=== PATIENT | male | born 1995 | race African-American/Black ===

== ENCOUNTER 2018-09-21 15:07 | Emergency (ER) | payer MEDICAID ==
--- NOTE | 2018-09-21 18:39 | ED Physician Chart ---
ED Chief Complaint/HPI - Patient Information Date Seen:: 09/21/18 Time Seen:: 15:25 Chief Complaint:: Scrotal Pain History of Present Illness:: onset x one month of intermittent scrotal pain and swelling, testicular pain, and scant, occasional urethral discharge; pt denies trauma, LOC, ALOC, AMS, H/As , S/T, neck pain, cough, C/P, SOB, Abd. Pain, A/N/V/D/C, fever, chills, or urinary s/s; pt is eating and is urinating well; pt last urinated 1/2 hour [employer]; pt's last tetanus shot: < 5 years; UTD Allergies:: Allergies Allergy/AdvReac Type Severity Reaction Status Date / Time No Known Allergies Allergy Verified 09/21/18 15:25 Vitals:: Vital Signs - 8 hr 09/21/18 09/21/18 15:25 16:26 Temp 99.5 F 97.3 F HR 99 99 RR 18 18 BP 102/68 102/68 O2 Sat % 99 Historian:: Patient Review:: Nurse's Note Reviewed ED Review of Systems - Review of Systems General/Constitutional: No fever, No chills, No weight loss, No weakness, No diaphoresis, No edema, No loss of appetite Skin: No skin lesions, No rash, No bruising Head: No headache, No light-headedness Eyes: No loss of vision, No pain, No diplopia ENT: No earache, No nasal drainage, No sore throat, No tinnitus Neck: No neck pain, No swelling, No thyromegaly, No stiffness, No mass noted Cardio Vascular: No chest pain, No palpitations, No PND, No orthopnea, No edema Pulmonary: No SOB, No cough, No sputum, No wheezing GI: No nausea, No vomiting, No diarrhea, No pain, No melena, No hematochezia, No constipation, No hematemesis G/U: No dysuria, No frequency, No hematuria, No nacturia Musculoskeletal: No bone or joint pain, No back pain, No muscle pain Endocrine: No polyuria, No polydipsia Psychiatric: No prior psych history, No depression, No anxiety, No suicidal ideation, No homicidal ideation, No auditory hallucination, No visual hallucination Hematopoietic: No bruising, No lymphadenopathy Allergic/Immuno: No urticaria, No angioedema Neurological: No syncope, No focal symptoms, No weakness, No paresthesia, No headache, No seizure, No dizziness, No confusion, No vertigo ED Past Medical History - Past Medical History Obtainable: Yes Past Medical History: No significant medical hx Family History: None Social History: Non Smoker, No Alcohol, No Drug Use, Single Surgical History: None Psychiatricy History: None Medication: Reviewed Family Medical History - Family Member Mother History Unknown: Yes ED Physical Exam - Physical Examination General/Constitutional: Awake, Well-developed, well-nourished, Alert, No distress, GCS 15, Non-toxic appearing, Ambulatory Head: Atraumatic Eyes: Lids, conjuctiva normal, PERRL, EOMI Skin: Nl inspection, No rash, No skin lesions, No ecchymosis, Well hydrated, No lymphadenopathy ENMT: External ears, nose nl, TM canals nl, Nasal exam nl, Lips, teeth, gums nl , Oropharynx nl, Tonsils nl Neck: Nontender, Full ROM w/o pain, No JVD, No nuchal rigidity, No bruit, No mass, No stridor Other Neck comments:: supple; no meningeal signs; no cervical tenderness; no bruits Respiratory: Nl effort/Exclusion, Clear to Auscultation, No Wheeze/Rhonchi/Rales Cardio Vascular: RRR, No murmur, gallop, rubs, NL S1 S2, Carotid/Femoral/Distal pulses equal bilaterally GI: No tenderness/rebounding/guarding, No organomegaly, No hernia, Normal BS's, Nondistended, No mass/bruits, No McBurney tenderness, Rectum exam nl Other GI comments:: no pulsatile masses : No CVA tenderness, No discharge Other comments:: + Scrotal mild swelling; + Hydroceles; + Epididymus tenderness; no cellulitis; no FBs; no TT Extremities: No tenderness or effusion, Full ROM, normal strength in all extremities, No edema, Normal digits & nails Neuro/Psych: Alert/oriented, DTR's symmetric, Normal sensory exam, Normal motor strength, Judgement/insight normal, Mood normal, Normal gait, No focal deficits Other Neuro/Psych comments:: no focal signs Misc: Normal back, No paraspinal tenderness ED Labs/Radiology/EKG Results - Lab Results Comments:: deferred by pt - Radiology Results Comments:: U/S: Bilateral Hydroceles; + Epididymitis; no Testicular Torsion ED Septic Shock - . Is Septic Shock (SBP<90, OR Lactate>4 mmol\L) present?: No - <6hrs of presentation: Vital Signs: Vital Signs - 8 hr 09/21/18 09/21/18 15:25 16:26 Temp 99.5 F 97.3 F HR 99 99 RR 18 18 BP 102/68 102/68 O2 Sat % 99 ED Reassessment (Disposition) - Reassessment Reassessment:: pt is asymptomatic upon discharge Reassessment Condition:: Improved - Diagnosis Diagnosis:: Scrotal Swelling; Hydroceles; Epididymitis; Scrotal Pain; Urethritis; STD; UTI - Aftercare/Follow up Instructions Aftercare/Follow-Up Instructions:: Counseled pt regarding lab results/diagnosis & need follow up, Refer to Discharge Instructions, Counseled pt & family regarding lab results/diagnosis & need follow up Medication Prescribed:: Rx: Doxycycline 100mg po bid x 10 days; Tylenol 500mg po qid prn pain/fever; STD Care Instructions - Patient Disposition Discharge/Transfer:: Home Condition at Disposition:: Stable, Improved (U/S Care Instructions; RTER prn if existing s/s reoccur and/or get worse and/or any other new s/s occur; ACIs given for all Dx; Referc to Urologist/ID Specialist/Geological Technician [facility]; F/U with PMD in one day or prn; RTER prn if concerned)
--- NOTE | 2018-09-22 09:38 | Diagnostic Imaging Report ---
Ultrasound scrotum HISTORY: Scrotal pain and swelling on the left COMPARISON: None Technique/procedure: Sonography of the scrotum and contents was performed in multiple planes. FINDINGS: The right testicle measures 4.3 x 2.3 x 2.3 cm and demonstrates a mildly heterogeneous echotexture. No discrete focal lesions. Vascular flow to right testicle is noted. The right epididymis head measures 1.4 cm. There is a small right hydrocele with debris noted. The left testicle measures 3.4 x 2.8 x 2.2 centers demonstrates a mildly heterogeneous echotexture. Vascular flow to left testicle is noted. No discrete focal lesions. The left epididymal head is prominent measuring 4.1 x 1.1 cm demonstrating increased vascularity. Small left hydrocele is also noted. IMPRESSION: Enlarged left epididymal head with increased vascularity most consistent with epididymitis. Please correlate clinically. Small bilateral hydroceles. Debris is seen within the right hydrocele. Infectious or inflammatory process cannot be excluded. Mildly heterogeneous bilateral testicles, nonspecific, however inflammatory process cannot be excluded.
== END 2018-09-21 16:20 | disposition home or self-care (01) ==
LOC: ER 15:07
DX: N43.3 Hydrocele, unspecified (principal); N45.1 Epididymitis; N39.0 Urinary tract infection, site not specified; N34.2 Other urethritis
CPT/HCPCS: 99284; 96372; 76870; J0696; Z7502